=== PATIENT | female | born 1965 | race Two or more races ===

== ENCOUNTER 2024-07-29 07:20 | Day surgery (SDC) | payer BC, SELFPAY ==
[2024-07-28 12:46] VITALS: BMI 34.0
[2024-07-29] VITALS (7 sets, daily range): BP systolic 116–175; BP diastolic 67–103; PULSE 58–92; RESP 12–19; TEMP 36.6–36.8; O2SAT 91–100; BMI 35.1
[2024-07-29] MEDS: DiphenhydrAMINE INJ 50 MG/ML VIAL 25 MG IV (09:36)
[2024-07-29] MEDS: MIDAZOLAM INJ 1 MG/ML VIAL 2 ML (ASD USE ONLY) 2 MG IV (09:37)
[2024-07-29] MEDS: fentaNYL CIT INJ 50 mCg/ML AMP 2ML (ASD USE ONLY) IV (09:37)
[2024-07-29] MEDS: ONDANSETRON INJ 2 MG/ML INJ 2 ML 4 MG IV (09:40)
--- NOTE | 2024-07-29 10:53 | SUR.PHASEII ---
0943: Pt received in recovery. Report from Vanessa RODRIGUEZ. Pt groggy, but awake, coherent. Resp even, unlabored. VS stable. Denies pain. 1007: Pt more alert. VS stable. Denies pain. Sitting up tolerating po fluids with no difficulty swallowing and no n/v. 1018: Pt fully awake, oriented x3. Pt assisted to restroom. Ambulation steady. 1036: Pt dressed and in transport chair. Pt and daughter stated understanding of discharge instructions. Pt discharged from [facility] in stable condition.
== END 2024-07-29 10:36 | disposition home or self-care (01) ==
PROVIDERS: PCP Family Medicine; Referring Provider Specialist; Visit Provider Specialist
PROC: (CPT 43239; principal; 2024-07-29 08:30)
DX: K20.90 Esophagitis, unspecified without bleeding (principal); K29.70 Gastritis, unspecified, without bleeding; K22.2 Esophageal obstruction; K29.50 Unspecified chronic gastritis without bleeding; K31.9 Disease of stomach and duodenum, unspecified; K31.7 Polyp of stomach and duodenum
CPT/HCPCS: 43248; 43239; A4649; C1769; J1200; J2250; J2405; J3010

== ENCOUNTER → 2025-04-14 | Outpatient (CLI) | payer BC, SELFPAY ==
--- NOTE | 2025-04-14 16:25 | XR_ITS ---
Examination: Abdomen sonogram, Limited Date and time of exam: April 14, 2025, 1635 hrs. Indications: Elevated liver function tests on laboratory examination March 08, 2025 Technique: Real-time gann scale transabdominal sonographic images of the upper abdomen obtained. Findings: Absent gallbladder Normal common bile duct 0.2 cm Pancreatic head 2.9 cm Liver 12.4 cm fatty infiltration no focal liver lesions Normal hepatopedal portal venous flow Patent IVC Impression: Normal common bile duct Liver normal size fatty infiltration
[2025-04-14 16:56] LABS: INR 1.0 (0.9-1.3); Prothrombin Time 10.5 Seconds (9.0-12.2)
[2025-04-14 17:13] LABS: Ferritin 12 ng/mL (7.3-270.7); Iron 69 mcg/dL (50-170); Percent Iron Saturation 19 % (20-55); Total Iron Binding Capacity 351 mcg/dL (250-425); Unsaturated Iron Binding 282 (225-295)
[2025-04-14 17:14] LABS: Alanine Aminotransferase 18 U/L (10-49); Albumin, Serum 4.1 gm/dL (3.5-5.0); Alkaline Phosphatase 124 U/L (46-116); Aspartate Amino Transferase 20 U/L (0-34); Bilirubin,Direct < 0.1 mg/dL (0.0-0.3); Bilirubin,Total 0.3 mg/dL (0.3-1.2); Total Protein 6.5 gm/dL (5.7-8.2)
[2025-04-14 17:50] LABS: AFP Non-Pregnant 4.00 ng/mL (<8.10); Hepatitis A Antibody IgM Non Reactive (Non React); Hepatitis B Core Antibody IgM Non Reactive (Non React); Hepatitis B Surface Antigen Non Reactive (Non React); Hepatitis C Antibody Non Reactive (Non React)
[2025-04-19 07:25] LABS: ACTH, Plasma* 10 pg/mL (6-50)
[2025-04-22 06:41] LABS: ANA Screen, IFA NEGATIVE (NEGATIVE); Alpha-1-Antitrypsin* 136 mg/dL (83-199); Ceruloplasmin* 23 mg/dL (14-48); Copper* 106 mcg/dL (70-175); Mitochondrial Ab NEGATIVE (NEGATIVE)
== END | disposition home or self-care (01) ==
PROVIDERS: PCP Nurse Practitioner Family; Referring Provider Specialist; Visit Provider Radiology Diagnostic Radiology
DX: K76.0 Fatty (change of) liver, not elsewhere classified (principal); E78.9 Disorder of lipoprotein metabolism, unspecified
CPT/HCPCS: 36415; 76705; 80074; 80076; 82024; 82103; 82105; 82390; 82525; 82728; 83540; 83550; 85610; 86038; 86255